=== PATIENT | male | born 1970 | race Caucasian/White ===

== ENCOUNTER 2021-09-08 12:44 | Emergency (ER) | payer OTHER ==
[2021-09-08] MEDS ORDERED: NAPROXEN500 MG PO (14:57)
[2021-09-08] MEDS ORDERED: BACLOFEN 10MG T10 MG PO (14:57)
[2021-09-08] MEDS ORDERED: VOLTAREN ARTHRI20 GM TOP (15:00)
== END 2021-09-08 15:12 | disposition home or self-care (01) ==
LOC: FER 12:44
DX: M25.511 Pain in right shoulder (principal); I10 Essential (primary) hypertension; W19.XXXA Unspecified fall, initial encounter
CPT/HCPCS: 73030; 96372; J1100; J1885

== ENCOUNTER → 2021-11-01 | Day surgery (SDC) | payer OTHER ==
[~2021-11-01] VITALS: Ht 175.3 cm; Wt 87.1 kg
[~2021-11-01] MED LIST: BACLOFEN 10MG T10 MG PO; NAPROXEN500 MG PO; VOLTAREN ARTHRI20 GM TOP
[2021-11-01 11:54] LABS: HCT 44.1 % (42.0-52.0); HGB 15.1 g/dl (13.2-18.0); MCH 29.3 pg (25.0-31.0); MCHC 34.2 g/dL (32.0-36.0); MCV 85.5 fL (78.0-100.0); MPV 9.3 fL (6.0-9.5); RBC 5.16 M/uL (4.70-6.00); RDW 13.2 % (11.5-14.0); WBC 5.1 K/uL (4.0-10.5)
[2021-11-01 12:18] LABS: BILIRUBIN - TOTAL 0.8 mg/dL (0.2-1.0); CREATININE 0.94 mg/dL (0.67-1.17); GLOBULIN (CALCULATION) 4.1 g/dL; TOTAL PROTEIN 8.1 g/dL (6.4-8.2)
== END | disposition home or self-care (01) ==
LOC: FAS 11:22
PROVIDERS: Orthopaedic Surgery
DX: M75.121 Complete rotator cuff tear or rupture of right shoulder, not specified as traumatic (principal); M19.011 Primary osteoarthritis, right shoulder; M75.51 Bursitis of right shoulder; M77.9 Enthesopathy, unspecified; Z79.899 Other long term (current) drug therapy
CPT/HCPCS: 36415; 71045; 80053; 93005; C1713; J0171; J0690; J1100; J1885; J2250; J2405; J2795; J7120